=== PATIENT | female | born 1965 | race Caucasian/White ===

== ENCOUNTER 2016-11-27 12:36 | Emergency (ER) | payer OTHER ==
[2016-11-27] MEDS ORDERED: ONDANSETRON HCL IV 4 MG/2 ML VIAL IV ONE (13:04)
[2016-11-27] MEDS ORDERED: KETOROLAC 30 MG/ML VIAL IVP ONE (13:04)
[2016-11-27] MEDS ORDERED: 0.9 % SODIUM CHLORIDE 1,000 ML BAG IV ONE (13:04)
--- NOTE | 2016-11-27 13:22 | Emergency Department Record ---
History of Present Illness - General Chief Complaint: Abdominal Pain Stated Complaint: DIVERTICULITIS Time Seen by Provider: 11/27/16 12:57 Source: Patient Mode of Arrival: Ambulatory Limitations: No limitations - History of Present Illness Initial Comments: pt has had diarrhea, nausea and abd pain in llq all week. pt thinks she is dehydrated. Complaint: Abdominal pain Onset/Timin -: Days(s) Location: LLQ Radiation: None Migration to: No migration Severity: Severe Quality: Stabbing Consistency: Constant Improves With: Nothing Worsens With: Nothing Associated Symptoms: Diarrhea, Nausea - Related Data Patient : No Home Medications Medication Instructions Recorded Confirmed Last Taken Alprazolam [Xanax] 1 mg PO BID PRN 04/17/14 11/27/16 03/21/16 Atorvastatin Calcium [Lipitor] 40 mg PO DAILY 04/17/14 11/27/16 03/21/16 Celecoxib [Celebrex] 200 mg PO DAILY 04/17/14 11/27/16 03/21/16 Dicyclomine HCl [Bentyl] 20 mg PO TID 04/17/14 11/27/16 03/21/16 Omeprazole [Prilosec] 20 mg PO DAILY 03/21/16 11/27/16 03/21/16 Trazodone HCl [Desyrel] 50 mg PO QHS 03/21/16 11/27/16 03/20/16 Fluvoxamine Maleate [Fluvoxamine 100 mg PO DAILY 11/27/16 11/27/16 Unknown Maleate ER] Gabapentin [Neurontin] 300 mg PO TID 11/27/16 11/27/16 Unknown Lubiprostone [Amitiza] 8 mcg PO DAILY 11/27/16 11/27/16 Unknown Quetiapine Fumarate [Seroquel] 100 mg PO QHS 11/27/16 11/27/16 Unknown Previous Rx's Medication Instructions Recorded Hydrocodone/Acetaminophen [[place] 1 tab PO Q6H PRN #7 tab 03/21/16 5mg/325mg] Allergies Allergy/AdvReac Type Severity Reaction Status Date / Time cephalexin monohydrate Allergy ITCHING Verified 03/21/16 11:45 [From Keflex] codeine Allergy ITCHING Verified 03/21/16 11:45 latex Allergy HIVES Verified 03/21/16 11:45 morphine Allergy VOMITING Verified 03/21/16 11:45 Travel Screening - Travel/Exposure Within Last 30 Days Have you traveled within the last 30 days?: No Review of Systems Reviewed: No additional complaints except as noted below Constitutional: Reports: As per HPI. Denies: Chills, Fever, Malaise, Night sweats, Weakness, Weight change Eyes: Reports: As per HPI. Denies: Eye discharge, Eye pain, Photophobia, Vision change ENT: Reports: As per HPI. Denies: Congestion, Dental pain, Ear pain, Epistaxis , Hearing loss, Throat pain Respiratory: Reports: As per HPI. Denies: Cough, Dyspnea, Hemoptysis, Stridor, Wheezes Cardiovascular: Reports: As per HPI. Denies: Arrhythmia, Chest pain, Dyspnea on exertion, Edema, Murmurs, Orthopnea, Palpitations, Paroxysmal nocturnal dyspnea, Rheumatic Fever, Syncope Endocrine: Reports: As per HPI. Denies: Fatigue, Heat or cold intolerance, Polydipsia, Polyuria Gastrointestinal: Reports: As per HPI. Denies: Abdominal pain, Constipation, Diarrhea, Hematemesis, Hematochezia, Melena, Nausea, Vomiting Genitourinary: Reports: As per HPI. Denies: Abnormal menses, Discharge, Dyspareunia, Dysuria, Frequency, Hematuria, Incontinence, Retention, Urgency Musculoskeletal: Reports: As per HPI. Denies: Arthralgia, Back pain, Gout, Joint swelling, Myalgia, Neck pain Skin: Reports: As per HPI. Denies: Bruising, Change in color, Change in hair/ nails, Lesions, Pruritus, Rash Neurological: Reports: As per HPI. Denies: Abnormal gait, Confusion, Headache, Numbness, Paresthesias, Seizure, Tingling, Tremors, Vertigo, Weakness Psychiatric: Reports: As per HPI. Denies: Anxiety, Auditory hallucinations, Depression, Homicidal thoughts, Suicidal thoughts, Visual hallucinations Hematological/Lymphatic: Reports: As per HPI. Denies: Anemia, Blood Clots, Easy bleeding, Easy bruising, Swollen glands Past Medical History - SOCIAL HISTORY Smoking Status: Current every day smoker Alcohol Use: None Drug Use: None - RESPIRATORY Hx Respiratory Disorders: No - CARDIOVASCULAR Hx Cardio Disorders: No - NEURO Hx Neuro Disorders: No - GI Hx GI Disorders: Yes Hx Diverticulitis: Yes Hx Reflux: Yes Comment:: chronic constipation and gi issues - Hx Genitourinary Disorders: No - ENDOCRINE Hx Endocrine Disorders: No - MUSCULOSKELETAL Hx Musculoskeletal Disorders: Yes - PSYCH Hx Psych Problems: Yes Hx Depression: Yes Comment:: OCPD - HEMATOLOGY/ONCOLOGY Hx Hematology/Oncology Disorders: No Family Medical History Any Significant Family History?: Yes Family Hx Comment (NOT TO BE USED IN PLACE OF ITEMS BELOW): High cholesterol Physical Exam - General General Appearance: Alert, Oriented x3, Cooperative, Mild distress - Head Head exam: Normal inspection - Eye Eye exam: Normal appearance, PERRL, EOMI Pupils: Normal accommodation - ENT ENT exam: Normal exam, Mucous membranes moist, Normal external ear exam, Normal orophraynx Ear exam: Normal external inspection. negative: External canal tenderness Nasal Exam: Normal inspection. negative: Discharge, Sinus tenderness Mouth exam: Normal external inspection, Tongue normal Teeth exam: Normal inspection. negative: Dental caries Throat exam: Normal inspection. negative: Tonsillar erythema, Tonsillar exudate - Neck Neck exam: Normal inspection, Full ROM. negative: Tenderness - Respiratory Respiratory exam: Normal lung sounds bilaterally. negative: Respiratory distress - Cardiovascular Cardiovascular Exam: Regular rate, Normal rhythm, Normal heart sounds - GI/Abdominal GI/Abdominal exam: Soft, Normal bowel sounds, Tenderness (llq) - Rectal Rectal exam: Deferred - exam: Deferred - Extremities Extremities exam: Normal inspection, Full ROM, Normal capillary refill. negative: Tenderness - Back Back exam: Reports: Normal inspection, Full ROM. Denies: Muscle spasm, Rash noted, Tenderness - Neurological Neurological exam: Alert, CN II-XII intact, Normal gait, Oriented X3, Reflexes normal - Psychiatric Psychiatric exam: Normal affect, Normal mood - Skin Skin exam: Dry, Intact, Normal color, Warm Course Vital Signs 11/27/16 12:39 Temperature 97.7 F Pulse Rate 75 Respiratory 20 Rate Blood Pressure 112/81 Pulse Ox 99 Medical Decision Making - Lab Data Result diagrams: 11/27/16 13:20 11/27/16 13:20 Disposition Disposition: Discharge Clinical Impression: Abdominal pain Qualifiers: Abdominal location: left lower quadrant Qualified Code(s): R10.32 - Left lower quadrant pain Disposition: Home, Self-Care Instructions: Abdominal Pain (ED) Additional Instructions: follow up with family doctor. return sooner if worse. push fluids Forms: Patient Portal Access
[2016-11-27 13:32] LABS: BASO % 0.3 % (0-6); EOS % 1.2 % (0-6); GRAN % 70.1 % (47-80); HEMATOCRIT 37.8 % (35.0-47.0); HEMOGLOBIN 12.4 gm/dl (11.6-16.0); LYMPH % 20.6 % (16-45); MEAN CELL VOLUME 87.7 fl (81-97); MEAN CORPUSCULAR HEMOGLOBIN 28.8 pg (27-33); MEAN CORPUSCULAR HGB CONC 32.8 g/dl (32-36); MONO % 7.8 % (0-9); PLATELET COUNT 205 K/uL (130-400); RED BLOOD COUNT 4.31 M/uL (3.80-5.40); RED CELL DISTRIBUTION WIDTH 13.4 % (11.5-14.5); WHITE BLOOD COUNT W/O DIFF 7.3 K/uL (4.2-12.2)
[2016-11-27 13:48] LABS: ALB/GLOB RATIO 1.5 (1.1-1.8); ALBUMIN 4.3 gm/dL (3.5-5.0); ALKALINE PHOSPHATASE 98 U/L (38-126); ALT/SGPT 24 U/L (9-52); ANION GAP 5.7 (7-16); AST/SGOT 19 U/L (14-36); BILIRUBIN,TOTAL 0.39 mg/dL (0.2-1.3); BLOOD UREA NITROGEN 17 mg/dL (7-17); CARBON DIOXIDE 28.3 mmol/L (22-30); CREATININE 0.7 mg/dL (0.52-1.04); EST GLOMERULAR FILTRATION RATE > 60 ml/min; GLUCOSE,RANDOM 90 mg/dL (70-110); LIPASE 84 U/L (23-300); TOTAL PROTEIN 7.2 gm/dL (6.3-8.2)
[2016-11-27 15:37] LABS: URINE APPEARANCE CLEAR; URINE BILIRUBIN NEGATIVE (NEGATIVE); URINE BLOOD NEGATIVE (NEGATIVE); URINE COLOR YELLOW; URINE GLUCOSE (UA) NEGATIVE (NEGATIVE); URINE KETONE NEGATIVE (NEGATIVE); URINE LEUKOCYTE ESTERASE NEGATIVE (NEGATIVE); URINE NITRITE NEGATIVE (NEGATIVE); URINE PROTEIN NEGATIVE (NEGATIVE); URINE UROBILINOGEN 0.2 E.U./dL (0.20 - 1.00)
--- NOTE | 2016-11-30 04:33 | CT SCAN REPORT ---
DATE: 11/27/2016. EXAM: CT SCAN OF THE ABDOMEN AND PELVIS. HISTORY: Diarrhea. TECHNIQUE: CT of the abdomen and pelvis was performed following the IV administration of 100 mL of Omnipaque 300 contrast. Oral contrast was also utilized. COMPARISON: Prior CT scan dated 03/21/2016. FINDINGS: Limited evaluation of the lung bases shows small bibasilar effusions. The liver, spleen, adrenal glands, pancreas, and left kidney are unremarkable. Simple right renal cyst. The gallbladder is present. Normal appendix. Abundant stool in the colon. No evidence for bowel obstruction. No free air or free fluid. IMPRESSION: SMALL BILATERAL PLEURAL EFFUSIONS. ABUNDANT STOOL IN THE COLON. JOB NUMBER: [id number] MTDD
== END 2016-11-27 16:06 | disposition home or self-care (01) ==
LOC: ER 12:36
DX: R10.32 Left lower quadrant pain (principal); R19.7 Diarrhea, unspecified; R11.0 Nausea
CPT/HCPCS: 99284 ×2; 96374; 96375; 96361; 83690; 85025; 80053; 81003; 74177; Q9967; J1885; J2405; J7030

== ENCOUNTER 2017-04-17 14:21 | Emergency (ER) | payer OTHER ==
[2017-04-17] MEDS ORDERED: ONDANSETRON HCL IV 4 MG/2 ML VIAL IV ONE (14:56)
[2017-04-17] MEDS ORDERED: KETOROLAC 30 MG/ML VIAL IVP ONE (14:56)
[2017-04-17] MEDS ORDERED: 0.9 % SODIUM CHLORIDE 1,000 ML BAG IV ONE (14:56)
[2017-04-17 15:43] LABS: BASO % 0.4 % (0-6); GRAN % 70.6 % (47-80); HEMATOCRIT 39.6 % (35.0-47.0); HEMOGLOBIN 13.3 gm/dl (11.6-16.0); LYMPH % 19.7 % (16-45); MEAN CORPUSCULAR HEMOGLOBIN 29.2 pg (27-33); MEAN CORPUSCULAR HGB CONC 33.6 g/dl (32-36); MEAN PLATELET VOLUME 10.6 fl (7.4-10.4); MONO % 8.3 % (0-9); PLATELET COUNT 188 K/uL (130-400); RED BLOOD COUNT 4.55 M/uL (3.80-5.40); RED CELL DISTRIBUTION WIDTH 13.4 % (11.5-14.5); WHITE BLOOD COUNT W/O DIFF 6.9 K/uL (4.2-12.2)
[2017-04-17 16:01] LABS: ALB/GLOB RATIO 1.7 (1.1-1.8); ALBUMIN 4.4 g/dL (4.0-5.0); ALKALINE PHOSPHATASE 97 U/L (35-104); ALT/SGPT 14 U/L (<33); AST/SGOT 14 U/L (10.0-35.0); BLOOD UREA NITROGEN 11 mg/dL (6-20); CREATININE 0.7 mg/dL (0.5-0.9); EST GLOMERULAR FILTRATION RATE > 60 mL/min; GLUCOSE,RANDOM 108 mg/dL (74-109); LIPASE 25 U/L (13-60)
[2017-04-17 16:58] LABS: URINE APPEARANCE CLEAR; URINE BILIRUBIN NEGATIVE (NEGATIVE); URINE BLOOD NEGATIVE (NEGATIVE); URINE COLOR YELLOW; URINE GLUCOSE (UA) NEGATIVE (NEGATIVE); URINE KETONE NEGATIVE (NEGATIVE); URINE LEUKOCYTE ESTERASE NEGATIVE (NEGATIVE); URINE NITRITE NEGATIVE (NEGATIVE); URINE PROTEIN NEGATIVE (NEGATIVE); URINE UROBILINOGEN 0.2 E.U./dL (0.20 - 1.00)
--- NOTE | 2017-04-17 18:02 | Emergency Department Record ---
History of Present Illness - General Chief Complaint: Abdominal Pain Stated Complaint: ABDOMINAL PAIN Time Seen by Provider: 04/17/17 14:46 Source: Patient Mode of Arrival: Ambulatory Limitations: No limitations - History of Present Illness Initial Comments: pt is having llq pain for 4 days that is keeping her awake at night. she has no n/v/d. she has chronic constipation. she takes norco and is not taking any stool softener. MD Complaint: Abdominal pain Onset/Timin -: Week(s) Location: Diffuse, Suprapubic Severity: Moderate Quality: Burning, Cramping Consistency: Constant Improves With: Nothing Worsens With: Nothing Associated Symptoms: Constipation - Related Data Patient : No Previous Rx's Medication Instructions Recorded Hydrocodone/Acetaminophen [[place] 1 tab PO Q6H PRN #7 tab 03/21/16 5mg/325mg] Allergies Allergy/AdvReac Type Severity Reaction Status Date / Time cephalexin monohydrate Allergy ITCHING Verified 04/17/17 14:28 [From Keflex] codeine Allergy ITCHING Verified 04/17/17 14:28 latex Allergy HIVES Verified 04/17/17 14:28 morphine Allergy VOMITING Verified 04/17/17 14:28 Travel Screening - Travel/Exposure Within Last 30 Days Have you traveled within the last 30 days?: No - Travel/Exposure Within Last Year Have you traveled outside the [place] in the last year?: No - Additonal Travel Details Have you been exposed to anyone with a communicable illness?: No - Travel Symptoms Symptom Screening: None Review of Systems Reviewed: No additional complaints except as noted below Constitutional: Reports: As per HPI. Denies: Chills, Fever, Malaise, Night sweats, Weakness, Weight change Eyes: Reports: As per HPI. Denies: Eye discharge, Eye pain, Photophobia, Vision change ENT: Reports: As per HPI. Denies: Congestion, Dental pain, Ear pain, Epistaxis , Hearing loss, Throat pain Respiratory: Reports: As per HPI. Denies: Cough, Dyspnea, Hemoptysis, Stridor, Wheezes Cardiovascular: Reports: As per HPI. Denies: Arrhythmia, Chest pain, Dyspnea on exertion, Edema, Murmurs, Orthopnea, Palpitations, Paroxysmal nocturnal dyspnea, Rheumatic Fever, Syncope Endocrine: Reports: As per HPI. Denies: Fatigue, Heat or cold intolerance, Polydipsia, Polyuria Gastrointestinal: Reports: As per HPI. Denies: Abdominal pain, Constipation, Diarrhea, Hematemesis, Hematochezia, Melena, Nausea, Vomiting Genitourinary: Reports: As per HPI. Denies: Abnormal menses, Discharge, Dyspareunia, Dysuria, Frequency, Hematuria, Incontinence, Retention, Urgency Musculoskeletal: Reports: As per HPI. Denies: Arthralgia, Back pain, Gout, Joint swelling, Myalgia, Neck pain Skin: Reports: As per HPI. Denies: Bruising, Change in color, Change in hair/ nails, Lesions, Pruritus, Rash Neurological: Reports: As per HPI. Denies: Abnormal gait, Confusion, Headache, Numbness, Paresthesias, Seizure, Tingling, Tremors, Vertigo, Weakness Psychiatric: Reports: As per HPI. Denies: Anxiety, Auditory hallucinations, Depression, Homicidal thoughts, Suicidal thoughts, Visual hallucinations Hematological/Lymphatic: Reports: As per HPI. Denies: Anemia, Blood Clots, Easy bleeding, Easy bruising, Swollen glands Past Medical History - SOCIAL HISTORY Smoking Status: Current every day smoker Alcohol Use: None Drug Use: None - RESPIRATORY Hx Respiratory Disorders: No - CARDIOVASCULAR Hx Cardio Disorders: No - NEURO Hx Neuro Disorders: No - GI Hx GI Disorders: Yes Hx Diverticulitis: Yes Hx Reflux: Yes Comment:: chronic constipation and gi issues - Hx Genitourinary Disorders: No - ENDOCRINE Hx Endocrine Disorders: No - MUSCULOSKELETAL Hx Musculoskeletal Disorders: Yes - PSYCH Hx Psych Problems: Yes Hx Depression: Yes Comment:: OCPD - HEMATOLOGY/ONCOLOGY Hx Hematology/Oncology Disorders: No Family Medical History Any Significant Family History?: Yes Family Hx Comment (NOT TO BE USED IN PLACE OF ITEMS BELOW): High cholesterol Physical Exam - General General Appearance: Alert, Oriented x3, Cooperative, Mild distress - Head Head exam: Normal inspection - Eye Eye exam: Normal appearance, PERRL, EOMI Pupils: Normal accommodation - ENT ENT exam: Normal exam, Mucous membranes moist, Normal external ear exam, Normal orophraynx Ear exam: Normal external inspection. negative: External canal tenderness Nasal Exam: Normal inspection. negative: Discharge, Sinus tenderness Mouth exam: Normal external inspection, Tongue normal Teeth exam: Normal inspection. negative: Dental caries Throat exam: Normal inspection. negative: Tonsillar erythema, Tonsillar exudate - Neck Neck exam: Normal inspection, Full ROM. negative: Tenderness - Respiratory Respiratory exam: Normal lung sounds bilaterally. negative: Respiratory distress - Cardiovascular Cardiovascular Exam: Regular rate, Normal rhythm, Normal heart sounds - GI/Abdominal GI/Abdominal exam: Soft, Normal bowel sounds, Tenderness - Rectal Rectal exam: Deferred - exam: Deferred - Extremities Extremities exam: Normal inspection, Full ROM, Normal capillary refill. negative: Tenderness - Back Back exam: Reports: Normal inspection, Full ROM. Denies: Muscle spasm, Rash noted, Tenderness - Neurological Neurological exam: Alert, CN II-XII intact, Normal gait, Oriented X3 - Psychiatric Psychiatric exam: Normal affect, Normal mood - Skin Skin exam: Dry, Intact, Normal color, Warm Course Vital Signs 04/17/17 04/17/17 14:32 17:31 Temperature 97.4 F L 97.4 F L Pulse Rate 75 Pulse Rate [ 62 Pulse Ox Probe] Respiratory 20 20 Rate Blood Pressure 117/87 Blood Pressure 124/78 [Left Arm] Pulse Ox 97 99 Medical Decision Making - Lab Data Result diagrams: 04/17/17 15:10 04/17/17 15:10 Lab Results 04/17/17 04/17/17 04/17/17 Range/Units 15:10 15:10 16:55 WBC 6.9 (4.2-12.2) K/uL RBC 4.55 (3.80-5.40) M/uL Hgb 13.3 (11.6-16.0) gm/dl Hct 39.6 (35.0-47.0) % MCV 87.0 (81-97) fl MCH 29.2 (27-33) pg MCHC 33.6 (32-36) g/dl RDW 13.4 (11.5-14.5) % Plt Count 188 (130-400) K/uL MPV 10.6 H (7.4-10.4) fl Gran % 70.6 (47-80) % Lymphocytes % 19.7 (16-45) % Monocytes % 8.3 (0-9) % Eosinophils % 1.0 (0-6) % Basophils % 0.4 (0-6) % Sodium 140 (136-145) mmol/L Potassium 3.8 (3.4-4.5) mmol/L Chloride 100 (98-107) mmol/L Carbon Dioxide 30.0 H (22-29) mmol/L Anion Gap 10.0 (7-16) BUN 11 (6-20) mg/dL Creatinine 0.7 (0.5-0.9) mg/dL Estimated GFR > 60 mL/min Random Glucose 108 (74-109) mg/dL Calcium 9.9 (8.6-10.0) mg/dL Total Bilirubin 0.20 (0.2-1.0) mg/dL AST 14 (10.0-35.0) U/L ALT 14 (<33) U/L Alkaline Phosphatase 97 (35-104) U/L Total Protein 7.0 (6.6-8.7) g/dL Albumin 4.4 (4.0-5.0) g/dL Globulin 2.6 (1.4-4.8) gm/dL Albumin/Globulin Ratio 1.7 (1.1-1.8) Lipase 25 (13-60) U/L Urine Color Yellow Urine Appearance Clear Urine pH 7.0 (5.0-8.0) Ur Specific [place] 1.010 (1.002-1.030) Urine Protein Negative (NEGATIVE) Urine Glucose (UA) Negative (NEGATIVE) Urine Ketones Negative (NEGATIVE) Urine Blood Negative (NEGATIVE) Urine Nitrite Negative (NEGATIVE) Urine Bilirubin Negative (NEGATIVE) Urine Urobilinogen 0.2 (0.20 - 1.00) E.U./dL Ur Leukocyte Esterase Negative (NEGATIVE) Disposition Disposition: Discharge Clinical Impression: Abdominal pain Qualifiers: Abdominal location: left lower quadrant Qualified Code(s): R10.32 - Left lower quadrant pain Constipation Qualifiers: Constipation type: slow transit constipation Qualified Code(s): K59.01 - Slow transit constipation Disposition: Home, Self-Care Condition: (1) Good Instructions: Abdominal Pain (ED), Constipation (ED) Additional Instructions: follow up with family doctor. return sooner if worse Quality - Quality Measures Quality Measures: N/A - Blood Pressure Screening Does Patient Have Any of the Following: No Blood Pressure Classification: Pre-Hypertensive BP Reading Systolic Measurement: 117 Diastolic Measurement: 87 Screening for High Blood Pressure: < Pre-Hypertensive BP, F/U Documented > [ G8950] Pre-Hypertensive Follow-up Interventions: Follow-up with rescreen every year.
--- NOTE | 2017-04-19 10:57 | CT SCAN REPORT ---
EXAM: CT SCAN OF THE ABDOMEN AND PELVIS HISTORY: ABDOMINAL PAIN. CONSTIPATION. TECHNIQUE: Standard CT imaging of the abdomen and pelvis was performed with oral and intravenous contrast. 100 ml of Omnipaque 300 were administered. Comparison: 11/27/16. FINDINGS: There are tiny bilateral pleural effusions which appear similar to the previous examination. There is minor atelectasis at the left lung base. The liver, gallbladder, biliary tree, pancreas, spleen, and adrenal glands are normal. There is a stable tiny cyst within the right kidney anteriorly. The kidneys and ureters are otherwise normal. The aorta is normal in caliber. There is no lymphadenopathy. A large amount of stool is present throughout the colon. There are no focal inflammatory changes. A few scattered diverticula are present within the sigmoid colon with no evidence for acute diverticulitis. The small bowel loops are normal in caliber. The appendix is visualized and is unremarkable. There is no pneumoperitoneum or ascites. The urinary bladder is normal. The bones appear intact. Degenerative changes are present within the spine. IMPRESSION: 1. NO ACUTE INTRAABDOMINAL PATHOLOGY. 2. A LARGE AMOUNT OF STOOL IS PRESENT WITHIN THE COLON. 3. MINOR SIGMOID DIVERTICULOSIS WITH NO EVIDENCE FOR ACUTE DIVERTICULITIS. 4. STABLE RIGHT RENAL CYST. 5. STABLE TINY BILATERAL PLEURAL EFFUSIONS. JOB NUMBER: [id number] [facility]
== END 2017-04-17 18:22 | disposition home or self-care (01) ==
LOC: ER 14:21
DX: R10.32 Left lower quadrant pain (principal); K59.01 Slow transit constipation
CPT/HCPCS: 99284 ×2; 96374; 96375; 83690; 85025; 80053; 81003; 74177; Q9967; J1885; J2405; J7030

== ENCOUNTER 2017-11-17 05:49 | Emergency (ER) | payer SELFPAY ==
--- NOTE | 2017-11-17 06:06 | Emergency Department Record ---
History of Present Illness - General Chief Complaint: Chest Pain Stated Complaint: CHEST PAIN Time Seen by Provider: 11/17/17 06:03 Source: Patient Mode of Arrival: Ambulatory Limitations: No limitations - History of Present Illness Initial Comments: 52 yo female presents to ED for evaluation of epigastric pain that radiates to her chest that began upon awakening this morning 90 minutes ago. Patient reports a history of "bowel issues" and surgery for adhesions 6 year ago, thought her symptoms were related to GERD and took Nexium this morning without improvement. Patient denies lower extremity swelling or history of DVT. MD Complaint: Chest pain Onset/Timin -: Hour(s) Onset: Awoke with symptoms Pain Location: Substernal, Left chest Pain Radiation: Back Severity: Moderate Severity scale (1-10): 9 Quality: Heaviness Consistency: Constant Improves With: Nothing Worsens With: Eating Anginal Symptoms: Diaphoresis, Nausea Treatments Prior to Arrival: None - Related Data On Oral Contraceptives: No Home Medications Medication Instructions Recorded Confirmed Last Taken Alprazolam 1 mg PO BID PRN 11/17/17 11/17/17 Unknown Esomeprazole Magnesium [Nexium] 20 mg PO DAILY 11/17/17 11/17/17 Unknown Allergies Allergy/AdvReac Type Severity Reaction Status Date / Time cephalexin monohydrate Allergy ITCHING Verified 04/17/17 14:28 [From Keflex] codeine Allergy ITCHING Verified 04/17/17 14:28 latex Allergy HIVES Verified 04/17/17 14:28 morphine Allergy VOMITING Verified 04/17/17 14:28 Travel Screening - Travel/Exposure Within Last 30 Days Have you traveled within the last 30 days?: No Review of Systems Constitutional: Denies: Chills, Fever, Malaise, Night sweats Eyes: Denies: Eye discharge, Eye pain ENT: Denies: Congestion, Ear pain, Epistaxis Respiratory: Denies: Cough, Dyspnea Cardiovascular: Reports: Chest pain. Denies: Dyspnea on exertion Endocrine: Denies: Fatigue, Heat or cold intolerance Gastrointestinal: Reports: Abdominal pain. Denies: Nausea, Vomiting Genitourinary: Denies: Incontinence, Retention Musculoskeletal: Denies: Arthralgia, Back pain, Gout, Joint swelling Skin: Denies: Bruising, Change in color Neurological: Denies: Abnormal gait, Confusion, Headache, Seizure Psychiatric: Denies: Anxiety Hematological/Lymphatic: Denies: Anemia, Blood Clots Past Medical History - SOCIAL HISTORY Smoking Status: Current every day smoker Alcohol Use: None Drug Use: None - RESPIRATORY Hx Respiratory Disorders: No - CARDIOVASCULAR Hx Cardio Disorders: No - NEURO Hx Neuro Disorders: No - GI Hx GI Disorders: Yes Hx Diverticulitis: Yes Hx Reflux: Yes Comment:: chronic constipation and gi issues - Hx Genitourinary Disorders: No - ENDOCRINE Hx Endocrine Disorders: No - MUSCULOSKELETAL Hx Musculoskeletal Disorders: Yes - PSYCH Hx Psych Problems: Yes Hx Depression: Yes Comment:: OCPD - HEMATOLOGY/ONCOLOGY Hx Hematology/Oncology Disorders: No Family Medical History Any Significant Family History?: Yes Family Hx Comment (NOT TO BE USED IN PLACE OF ITEMS BELOW): High cholesterol Physical Exam - General General Appearance: Alert, Oriented x3, Cooperative, Mild distress, Anxious Limitations: No limitations - Head Head exam: Atraumatic, Normocephalic, Normal inspection Head exam detail: negative: Abrasion, Contusion, Esteban's sign, General tenderness, Hematoma, Laceration - Eye Eye exam: Normal appearance. negative: Conjunctival injection, Periorbital swelling, Periorbital tenderness, Scleral icterus - ENT Ear exam: negative: Auricular hematoma, Auricular trauma Nasal Exam: negative: Active bleeding, Discharge, Dried blood, Foreign body Mouth exam: negative: Drooling, Laceration, Muffled voice, Tongue elevation - Neck Neck exam: Normal inspection. negative: Meningismus, Tenderness - Respiratory Respiratory exam: Normal lung sounds bilaterally. negative: Rales, Respiratory distress, Rhonchi, Stridor - Cardiovascular Cardiovascular Exam: Regular rate, Normal rhythm, Normal heart sounds - GI/Abdominal GI/Abdominal exam: Soft, Other (Benign abdominal examination). negative: Rebound, Rigid, Tenderness - Rectal Rectal exam: Deferred - exam: Deferred - Extremities Extremities exam: Normal inspection. negative: Calf tenderness, Pedal edema, Tenderness - Back Back exam: Denies: CVA tenderness (R), CVA tenderness (L) - Neurological Neurological exam: Alert, Normal gait, Oriented X3 - Psychiatric Psychiatric exam: Normal affect, Normal mood - Skin Skin exam: Normal color. negative: Abrasion Type of lesion: negative: abrasion Course Vital Signs 11/17/17 05:50 Temperature 97.6 F Pulse Rate 48 L Respiratory 22 Rate Blood Pressure 152/89 Pulse Ox 100 - Reevaluation(s) Reevaluation #1: 11/17/17 06:04 EKG: NSR 48 LAD, normal intervals No acute ST-T wave changes are present Reevaluation #2: 11/17/17 06:41 Laboratory results were reviewed and are grossly unremarkable for an acute process. Reevaluation #3: 11/17/17 06:43 CXR: No acute process identified. Reevaluation #4: 11/17/17 06:49 Patient reassessed, reports pain radiating up to her chest is improved following GI cocktail. Toradol ordered for patient's abdominal pain symptoms which patient reports has improved her symptoms previously. Plan for 2nd Troponin at 3 hours was discussed with the patient as well, she agrees with the plan of care as discussed. Reevaluation #5: 11/17/17 06:52 Case was discussed with oncoming provider, will assume care and disposition at this time with a plan for re-evaluation following Toradol administration and repeat Troponin at 9:00. Re-examination of the abdomen continues to be benign without focal tenderness or peritoneal signs on examination. Medical Decision Making - Lab Data Result diagrams: 11/17/17 05:55 11/17/17 05:55 Disposition Disposition: Discharge Clinical Impression: Chest pain Qualifiers: Chest pain type: unspecified Qualified Code(s): R07.9 - Chest pain, unspecified Condition: (2) Stable Additional Instructions: Return to ED if your symptoms worsen or if you have any concerns. Follow-up with your family doctor in 3-5 days as directed. Forms: Patient Portal Access Quality - Quality Measures Quality Measures: N/A - Blood Pressure Screening Does Patient Have Any of the Following: No Blood Pressure Classification: Pre-Hypertensive BP Reading Systolic Measurement: 152 Diastolic Measurement: 89 Screening for High Blood Pressure: < Pre-Hypertensive BP, F/U Documented > [ G8950] Pre-Hypertensive Follow-up Interventions: Referral to alternative/primary care provider.
[2017-11-17] MEDS ORDERED: ASPIRIN 81 MG CHEWABLE TABLET PO ONE (06:11)
[2017-11-17] MEDS ORDERED: MAGNESIUM HYDROXIDE/AL HYDROX 30 ML, LIDOCAINE VISC 2% 15ML 15 ML PO ONE ×2 (06:11)
[2017-11-17 06:18] LABS: BASO % 0.2 % (0-6); EOS % 2.4 % (0-6); GRAN % 65.7 % (47-80); HEMATOCRIT 40.8 % (35.0-47.0); HEMOGLOBIN 13.8 gm/dl (11.6-16.0); LYMPH % 22.4 % (16-45); MEAN CELL VOLUME 86.3 fl (81-97); MEAN CORPUSCULAR HEMOGLOBIN 29.2 pg (27-33); MEAN CORPUSCULAR HGB CONC 33.8 g/dl (32-36); MEAN PLATELET VOLUME 10.4 fl (7.4-10.4); MONO % 9.3 % (0-9); PLATELET COUNT 211 K/uL (130-400); RED BLOOD COUNT 4.73 M/uL (3.80-5.40); WHITE BLOOD COUNT W/O DIFF 8.4 K/uL (4.2-12.2)
[2017-11-17 06:30] LABS: BLOOD UREA NITROGEN 15 mg/dL (6-20); CREATININE 0.6 mg/dL (0.5-0.9); EST GLOMERULAR FILTRATION RATE > 60 mL/min
[2017-11-17 06:31] LABS: TOTAL PROTEIN 6.8 g/dL (6.6-8.7)
[2017-11-17 06:33] LABS: GLUCOSE,RANDOM 108 mg/dL (74-109)
[2017-11-17 06:35] LABS: ALB/GLOB RATIO 1.6 (1.1-1.8); ALBUMIN 4.2 g/dL (4.0-5.0); ALT/SGPT 15 U/L (<33); AST/SGOT 18 U/L (10.0-35.0)
[2017-11-17 06:36] LABS: LIPASE 33 U/L (13-60)
[2017-11-17 06:37] LABS: ALKALINE PHOSPHATASE 94 U/L (35-104)
[2017-11-17] MEDS ORDERED: KETOROLAC 30 MG/ML VIAL IVP ONE (06:49)
[2017-11-17] MEDS ORDERED: SUCRALFATE 1 G/10 ML UD PO ONE (07:42)
--- NOTE | 2017-11-17 08:02 | Emergency Department Record ---
History of Present Illness - General Chief Complaint: Chest Pain Stated Complaint: CHEST PAIN Time Seen by Provider: 11/17/17 06:03 Source: Patient Mode of Arrival: Ambulatory Limitations: No limitations - History of Present Illness Onset/Timin -: Hour(s) Onset: Awoke with symptoms Pain Location: Substernal, Left chest Pain Radiation: Back Severity: Moderate Severity scale (1-10): 9 Quality: Heaviness Consistency: Constant Improves With: Nothing Worsens With: Eating Anginal Symptoms: Diaphoresis, Nausea Treatments Prior to Arrival: None - Related Data On Oral Contraceptives: No Home Medications Medication Instructions Recorded Confirmed Last Taken Alprazolam 1 mg PO BID PRN 11/17/17 11/17/17 Unknown Esomeprazole Magnesium [Nexium] 20 mg PO DAILY 11/17/17 11/17/17 Unknown Allergies Allergy/AdvReac Type Severity Reaction Status Date / Time cephalexin monohydrate Allergy ITCHING Verified 04/17/17 14:28 [From Keflex] codeine Allergy ITCHING Verified 04/17/17 14:28 latex Allergy HIVES Verified 04/17/17 14:28 morphine Allergy VOMITING Verified 04/17/17 14:28 Travel Screening - Travel/Exposure Within Last 30 Days Have you traveled within the last 30 days?: No Review of Systems Constitutional: Denies: Chills, Fever, Malaise, Night sweats Eyes: Denies: Eye discharge, Eye pain ENT: Denies: Congestion, Ear pain, Epistaxis Respiratory: Denies: Cough, Dyspnea Cardiovascular: Reports: Chest pain. Denies: Dyspnea on exertion Endocrine: Denies: Fatigue, Heat or cold intolerance Gastrointestinal: Reports: Abdominal pain. Denies: Nausea, Vomiting Genitourinary: Denies: Incontinence, Retention Musculoskeletal: Denies: Arthralgia, Back pain, Gout, Joint swelling Skin: Denies: Bruising, Change in color Neurological: Denies: Abnormal gait, Confusion, Headache, Seizure Psychiatric: Denies: Anxiety Hematological/Lymphatic: Denies: Anemia, Blood Clots Past Medical History - SOCIAL HISTORY Smoking Status: Current every day smoker Alcohol Use: None Drug Use: None - RESPIRATORY Hx Respiratory Disorders: No - CARDIOVASCULAR Hx Cardio Disorders: No - NEURO Hx Neuro Disorders: No - GI Hx GI Disorders: Yes Hx Diverticulitis: Yes Hx Reflux: Yes Comment:: chronic constipation and gi issues - Hx Genitourinary Disorders: No - ENDOCRINE Hx Endocrine Disorders: No - MUSCULOSKELETAL Hx Musculoskeletal Disorders: Yes - PSYCH Hx Psych Problems: Yes Hx Depression: Yes Comment:: OCPD - HEMATOLOGY/ONCOLOGY Hx Hematology/Oncology Disorders: No Family Medical History Any Significant Family History?: Yes Family Hx Comment (NOT TO BE USED IN PLACE OF ITEMS BELOW): High cholesterol Physical Exam - General Limitations: No limitations Course Vital Signs 11/17/17 11/17/17 11/17/17 05:50 06:13 06:37 Temperature 97.6 F Pulse Rate 48 L Pulse Rate [ 45 L 46 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 She states her AP and CP are 100% resolved with the GI meds and Toradol. Presently there is no back pain, CP, SOB , EARLINE, or AP. The patient states this episode is similar to her chronic AP episodes but this is the first time the pain radiated to the chest. She has no hx of any cardiac issues and no hx of Cp with exertion. On exam her abdomen is very soft and nontender in all 4 quads. 2nd EKG: NSR at 51, Neg for ischemic changes. RsR' pattern. 11/17/17 07:57 Reevaluation #2: The patient is doing very well at this time. She is pain free and ready for home. I did explain the repeat test results were normal. She is to F/U with GI here in the Specialty clinic for further eval and a possible EGD. 11/17/17 09:51 Medical Decision Making - Data Complexity MDM Data: Labs Ordered and/or Reviewed, X-Ray Ordered and/or Reviewed, EKG Ordered and/or Reviewed - Lab Data Result diagrams: 11/17/17 05:55 11/17/17 05:55 Lab Results 11/17/17 11/17/17 Range/Units 05:55 05:55 WBC 8.4 (4.2-12.2) K/uL RBC 4.73 (3.80-5.40) M/uL Hgb 13.8 (11.6-16.0) gm/dl Hct 40.8 (35.0-47.0) % MCV 86.3 (81-97) fl MCH 29.2 (27-33) pg MCHC 33.8 (32-36) g/dl RDW 13.0 (11.5-14.5) % Plt Count 211 (130-400) K/uL MPV 10.4 (7.4-10.4) fl Gran % 65.7 (47-80) % Lymphocytes % 22.4 (16-45) % Monocytes % 9.3 H (0-9) % Eosinophils % 2.4 (0-6) % Basophils % 0.2 (0-6) % Sodium 146 H (136-145) mmol/L Potassium 4.1 (3.4-4.5) mmol/L Chloride 104 (98-107) mmol/L Carbon Dioxide 25.0 (22-29) mmol/L Anion Gap 17.0 H (7-16) BUN 15 (6-20) mg/dL Creatinine 0.6 (0.5-0.9) mg/dL Estimated GFR > 60 mL/min Random Glucose 108 (74-109) mg/dL Calcium 9.8 (8.6-10.0) mg/dL Total Bilirubin 0.20 (0.2-1.0) mg/dL AST 18 (10.0-35.0) U/L ALT 15 (<33) U/L Alkaline Phosphatase 94 (35-104) U/L Troponin T < 0.010 (0-0.010) ng/mL Total Protein 6.8 (6.6-8.7) g/dL Albumin 4.2 (4.0-5.0) g/dL Globulin 2.6 (1.4-4.8) gm/dL Albumin/Globulin Ratio 1.6 (1.1-1.8) Lipase 33 (13-60) U/L - Radiology Data Radiology results: Report reviewed (CXR: Neg.) Disposition Disposition: Discharge Clinical Impression: Acute epigastric pain Disposition: Home, Self-Care Condition: (2) Stable Instructions: Abdominal Pain (ED) Additional Instructions: Return to ED if your symptoms worsen or if you have any concerns. Follow-up with your family doctor in 3-5 days as directed. Please see Dr. Berman in the Specialty clinic as directed. Referrals: [facility] Specialty [facility] [Provider Group] Forms: Patient Portal Access Time of Disposition: 09:53 Quality - Quality Measures Quality Measures: N/A - Blood Pressure Screening View Details: Yes Does Patient Have Any of the Following: No Blood Pressure Classification: Hypertensive Reading Systolic Measurement: 157 Diastolic Measurement: 79 Screening for High Blood Pressure: < First Hypertensive BP, F/U Documented > [ G8950] First Hypertensive Follow-up Interventions: Referral to alternative/primary care provider.
[2017-11-17 09:35] LABS: CKMB 1.5 ng/mL (<3.77)
--- NOTE | 2017-11-18 12:59 | RADIOLOGY REPORT ---
EXAM: CHEST, TWO VIEWS HISTORY: CHEST PAIN. TECHNIQUE: Frontal and lateral views of the chest were obtained. Comparison: Prior chest from 06/25/11. FINDINGS: The heart size is normal. The lungs are mildly hyperinflated, but clear. No pneumothorax. IMPRESSION: UNDERLYING HYPERINFLATION. NO ACUTE CARDIOPULMONARY PROCESS. JOB NUMBER: [id number] MTDD
== END 2017-11-17 10:13 | disposition home or self-care (01) ==
LOC: ER 05:49
DX: R10.13 Epigastric pain (principal); R07.2 Precordial pain; R11.0 Nausea; R61 Generalized hyperhidrosis; F17.210 Nicotine dependence, cigarettes, uncomplicated
CPT/HCPCS: 99284 ×2; 96374; 83690; 85025; 82553; 80053; 84484; 71046; 93005; 93010; J1885; J3490

== ENCOUNTER 2017-11-22 00:50 | Day surgery (SDC) | payer SELFPAY ==
[2017-11-22] MEDS ORDERED: LIDOCAINE 2% MDV (20MG/ML) 20ML VIAL IV ONE (00:51)
[2017-11-22] MEDS ORDERED: ROCURONIUM BROMIDE 50MG/5ML VIAL IV ONE (00:51)
[2017-11-22] MEDS ORDERED: 0.9 % SODIUM CHLORIDE 1,000 ML BAG IV ONE (00:51)
[2017-11-22] MEDS ORDERED: DESFLURANE 240 ML BTL INH ONE (00:51)
[2017-11-22] MEDS ORDERED: SUCCINYLCHOLINE 20 MG/ML 10ML IVP ONE (00:51)
[2017-11-22] MEDS ORDERED: BUPIVACAINE 0.25% W/EPI MPF 30ML VIAL IVP ONE (00:51)
[2017-11-22] MEDS ORDERED: ONDANSETRON HCL IV 4 MG/2 ML VIAL IVP ONE ×2 (00:51)
[2017-11-22] MEDS ORDERED: HYDROMORPHONE HCL 2 MG/ML VIAL IV ONE (00:51)
[2017-11-22] MEDS ORDERED: PROPOFOL 10 MG/ML VIAL IV ONE (00:51)
--- NOTE | 2017-11-22 00:59 | Emergency Department Record ---
History of Present Illness - General Chief Complaint: Abdominal Pain Stated Complaint: CHEST/ABD/BACK PAIN Time Seen by Provider: 11/22/17 00:51 Source: Patient Mode of Arrival: Ambulatory Limitations: No limitations - History of Present Illness Initial Comments: 52 yo female presents with 4 hours of upper abdominal pain. The pain radiates to her back and her chest. She states is has occurred prior. Food seems to cause the pain. She has associated nausea and vomiting. She was seen in the ED on 11/17/17. She states the pain never completely resolved from the prior visit but was very mild when she went home. She states eating food the last several days will bring on the pain. She has had essentially no appetite since the prior visit. Even toast will cause her pain and nausea. This evening she had a salad with ranch dressing. Within one hour she developed pain and nausea with vomiting. No blood in the vomit. No cough. She has history of abdominal adhesions with surgery by Dr Anna 5 years ago. She states she has had recurrent abdominal pain in the past. MD Complaint: Abdominal pain, Other -: Hour(s) (4) Location: Epigastric Radiation: Back, Chest, Epigastric Migration to: Epigastric Severity: Moderate Quality: Aching, Sharp Consistency: Constant Improves With: Nothing Worsens With: Eating Context: Other Associated Symptoms: Anorexia - Related Data Allergies Allergy/AdvReac Type Severity Reaction Status Date / Time cephalexin monohydrate Allergy ITCHING Verified 04/17/17 14:28 [From Keflex] codeine Allergy ITCHING Verified 04/17/17 14:28 latex Allergy HIVES Verified 04/17/17 14:28 morphine Allergy VOMITING Verified 04/17/17 14:28 Review of Systems Constitutional: Denies: Chills, Fever, Malaise, Weakness Eyes: Denies: Eye discharge, Eye pain, Photophobia, Vision change ENT: Denies: Congestion, Throat pain Respiratory: Denies: Cough, Dyspnea, Hemoptysis, Stridor, Wheezes Cardiovascular: Reports: Chest pain. Denies: Dyspnea on exertion, Edema, Palpitations, Syncope Endocrine: Denies: Fatigue, Polydipsia, Polyuria Gastrointestinal: Reports: Abdominal pain, Diarrhea, Nausea, Vomiting. Denies: Constipation Genitourinary: Denies: Dysuria, Urgency Musculoskeletal: Reports: Back pain. Denies: Arthralgia Skin: Denies: Bruising, Change in color, Rash Neurological: Denies: Numbness, Weakness Psychiatric: Denies: Anxiety Hematological/Lymphatic: Denies: Easy bleeding, Easy bruising, Swollen glands Past Medical History - SOCIAL HISTORY Smoking Status: Current every day smoker Drug Use: None - RESPIRATORY Hx Respiratory Disorders: No - CARDIOVASCULAR Hx Cardio Disorders: No - NEURO Hx Neuro Disorders: No - GI Hx GI Disorders: Yes Hx Diverticulitis: Yes Hx Reflux: Yes Comment:: chronic constipation and gi issues - Hx Genitourinary Disorders: No - ENDOCRINE Hx Endocrine Disorders: No - MUSCULOSKELETAL Hx Musculoskeletal Disorders: Yes - PSYCH Hx Psych Problems: Yes Hx Depression: Yes Comment:: OCPD - HEMATOLOGY/ONCOLOGY Hx Hematology/Oncology Disorders: No Family Medical History Family Hx Comment (NOT TO BE USED IN PLACE OF ITEMS BELOW): High cholesterol Physical Exam - General General Appearance: Alert, Oriented x3, Cooperative, No acute distress Limitations: No limitations - Head Head exam: Atraumatic, Normal inspection - Eye Eye exam: Normal appearance, PERRL. negative: Conjunctival injection, Scleral icterus - ENT ENT exam: Normal exam, Mucous membranes moist Ear exam: Normal external inspection Nasal Exam: Normal inspection Mouth exam: Normal external inspection Teeth exam: Normal inspection Throat exam: Normal inspection - Neck Neck exam: Normal inspection, Full ROM. negative: Tenderness - Respiratory Respiratory exam: Normal lung sounds bilaterally. negative: Respiratory distress - Cardiovascular Cardiovascular Exam: Regular rate, Normal rhythm, Normal heart sounds - GI/Abdominal GI/Abdominal exam: Soft, Tenderness (She is tender in the epigastrium and RUQ. The abdomen is otherwise very soft and non tender. The RUQ and Epigastric pain are reproducible.). negative: Guarding, Rebound, Rigid - Rectal Rectal exam: Deferred - exam: Deferred - Extremities Extremities exam: Normal inspection, Full ROM, Normal capillary refill. negative: Tenderness - Back Back exam: Reports: Normal inspection. Denies: CVA tenderness (R), CVA tenderness (L) - Neurological Neurological exam: Alert, Oriented X3 - Psychiatric Psychiatric exam: Normal affect, Normal mood - Skin Skin exam: Dry, Intact, Normal color, Warm Course - Reevaluation(s) Reevaluation #1: EKG Sinus jovita, rate is 50, intervals QTc 456, [place] L, ST NS anterior changes similar and unchanged from the 11/17/17 EKG. 11/22/17 01:10 11/22/17 01:13 The EMR was reviewed from the prior visit on 11/[address] scans on the EMR were reviewed. She has had 3 [address] scans in the last 2 years. 11/22/17 01:29 The labs were negative including CMP,Lipase and troponin. 11/22/17 03:[address] scan from [facility] was reviewed. Distended gallbladder, Cholelithiasis. Correlate clinically and consider ultrasound for cholecystitis. 11/22/17 06:08 The case was discussed with Dr Ferrara. The plan will be for surgery this morning for cholelithiasis/cholecystitis. Medical Decision Making - Lab Data Result diagrams: 11/22/17 00:55 11/22/17 00:55 Disposition Disposition: Discharge Clinical Impression: Cholecystitis, Cholelithiasis Disposition: Home, Self-Care Condition: (1) Good Additional Instructions: Discharge to Outpatient Surgery Forms: Patient Portal Access Time of Disposition: 06:09 Quality - Quality Measures Quality Measures: N/A - Blood Pressure Screening Does Patient Have Any of the Following: No Blood Pressure Classification: Pre-Hypertensive BP Reading Systolic Measurement: 123 Diastolic Measurement: 81 Screening for High Blood Pressure: < Pre-Hypertensive BP, F/U Documented > [ G8950] Pre-Hypertensive Follow-up Interventions: Referral to alternative/primary care provider.
[2017-11-22 01:05] LABS: BASO % 0.3 % (0-6); EOS % 1.5 % (0-6); GRAN % 72.7 % (47-80); HEMATOCRIT 39.4 % (35.0-47.0); HEMOGLOBIN 13.4 gm/dl (11.6-16.0); LYMPH % 17.7 % (16-45); MEAN CELL VOLUME 86.4 fl (81-97); MEAN CORPUSCULAR HEMOGLOBIN 29.4 pg (27-33); MONO % 7.8 % (0-9); PLATELET COUNT 210 K/uL (130-400); RED BLOOD COUNT 4.56 M/uL (3.80-5.40); RED CELL DISTRIBUTION WIDTH 13.2 % (11.5-14.5); WHITE BLOOD COUNT W/O DIFF 9.1 K/uL (4.2-12.2)
[2017-11-22] MEDS ORDERED: MAGNESIUM HYDROXIDE/AL HYDROX 30 ML, LIDOCAINE VISC 2% 15ML 15 ML PO ONE ×2 (01:05)
[2017-11-22] MEDS ORDERED: KETOROLAC 30 MG/ML VIAL IVP ONE (01:05)
[2017-11-22 01:13] LABS: BLOOD UREA NITROGEN 12 mg/dL (6-20); CREATININE 0.7 mg/dL (0.5-0.9); EST GLOMERULAR FILTRATION RATE > 60 mL/min
[2017-11-22 01:14] LABS: BILIRUBIN,TOTAL < 0.20 mg/dL (0.2-1.0)
[2017-11-22 01:16] LABS: GLUCOSE,RANDOM 133 mg/dL (74-109)
[2017-11-22 01:19] LABS: ALB/GLOB RATIO 1.7 (1.1-1.8); ALBUMIN 4.4 g/dL (4.0-5.0); ALKALINE PHOSPHATASE 93 U/L (35-104); ALT/SGPT 15 U/L (<33); AST/SGOT 16 U/L (10.0-35.0); LIPASE 22 U/L (13-60)
[2017-11-22] MEDS ORDERED: 0.9 % SODIUM CHLORIDE 1000ML 1,000 ML IV ONE ×2 (03:23→06:13)
[2017-11-22] MEDS ORDERED: PIPERACILLIN SODIUM/TAZOBACTAM 4.5 GM in 0.9 % SODIUM CHLORIDE 100ML 100 ML IVPB ONE (03:32)
[2017-11-22] MEDS ORDERED: HYDROMORPHONE HCL 2 MG/ML VIAL IVP ONE ×2 (04:01→06:57)
--- NOTE | 2017-11-23 08:58 | CT SCAN REPORT ---
EXAM: EMERGENCY CT OF THE ABDOMEN AND PELVIS WITH CONTRAST HISTORY: UPPER ABDOMINAL PAIN, LOSS OF APPETITE. HYSTERECTOMY. PRIOR ADHESIONS RESECTED ALSO. TECHNIQUE: Axial CT scan of the abdomen and pelvis was obtained following both oral and IV contrast administration utilizing a dose of 100 ml of Omnipaque 300 as the IV contrast. Comparison: CT of the abdomen and pelvis dated 04/17/17. A preliminary report was provided by [facility]. FINDINGS: The gallbladder appears somewhat distended with a slightly thick walled appearance and slight blurring of the gallbladder outline. There is questionably cholelithiasis as well. The possibility of acute cholecystitis cannot be excluded. Follow-up gallbladder ultrasound may be useful for further evaluation if clinically warranted. Approximately 9.7 mm low attenuation mass anteriorly right kidney also present previously, with a CT density of 19 consistent with a cyst. There is probably a tiny nonobstructing calculus posteriorly in the left kidney as well. No definite hepatic, splenic, adrenal, or pancreatic mass identified. The uterus is not identified consistent with the surgical history. Minor diverticulosis sigmoid colon, but no diverticulitis evident. The appendix appears negative with no appendicitis evident. No free intraperitoneal air or free intraperitoneal fluid identified. Mild linear fibrosis or discoid atelectasis in the lingula again evident. There is probably some mild atelectasis posteriorly in the lung bases as well. Prominent hypertrophic spurring in the lower thoracic spine and degenerative disk disease in the lower lumbar spine with facet joint arthropathy in the lower lumbar region as well. IMPRESSION: 1. FINDINGS INVOLVING THE GALLBLADDER SUSPICIOUS FOR MILD CHANGES OF ACUTE CHOLECYSTITIS. FOLLOW-UP GALLBLADDER ULTRASOUND MAY BE USEFUL. 2. SMALL CYST UPPER POLE RIGHT KIDNEY AND SMALL NONOBSTRUCTING CALCULUS LEFT KIDNEY. 3. POSTOP HYSTERECTOMY. 4. MINOR DIVERTICULOSIS SIGMOID COLON, BUT NO DIVERTICULITIS EVIDENT. 5. PROMINENT SPURRING LOWER THORACIC SPINE AND PROMINENT FACET JOINT ARTHROPATHY LOWER LUMBAR SPINE. JOB NUMBER: [id number] [employer]
--- NOTE | 2017-11-24 12:40 | Operative Note ---
DATE OF SURGERY: 11/22/2017 Surgeon: Tato Ferrara DO PREOPERATIVE DIAGNOSIS: Acute cholecystitis. POSTOPERATIVE DIAGNOSIS: Acute cholecystitis. OPERATION: Laparoscopic cholecystectomy. Indication: The patient is a 52-year-old female who is having ongoing right subcostal postprandial pain. She was seen in the ER where a full workup was done. This did include imaging studies as well as laboratory values. This did show findings consistent with cholelithiasis, thickened gallbladder wall with some chronic cholecystitis. We did discuss cholecystectomy versus medical management. She desired surgical intervention. Risks include but are not limited to bleeding, infection, ductal injury, possible conversion to open, postoperative bile leak. PROCEDURE: Thereafter, consent was signed and questions answered. She was taken to the operating room and placed in a supine position. General anesthesia was administered per the department of anesthesia. The patient's abdomen was prepped and draped in the usual sterile fashion. The infraumbilical region was anesthetized with a total of 5 mL of 0.25% Sensorcaine with epinephrine. A 2 cm infraumbilical incision was made. This was carried down to the anterior rectus fascia. This was incised. Gildardo clamps were placed on the fascial edges and brought up into the wound. Stay sutures of 0 Vicryl were placed. Posterior rectus sheath was identified and incised. The peritoneal cavity was entered bluntly. At this time, a 10 mm blunt Peg port was placed. Adequate pneumoperitoneum was established. Under direct visualization, additional 5 mm epigastric and two 5 mm right subcostal ports were placed. The patient was then rotated into steep reverse Trendelenburg with rotation to left. The gallbladder was then identified. It was noted to be very thickened and inflamed. A Biermann needle was used to decompress the gallbladder of approximately 80 mL of purulent bile. Cephalad and lateral retraction were applied. The hepatocystic triangle was thoroughly dissected out. There was no aberrant anatomy, no posterior ductal structures. The cystic duct and cystic artery were clearly identified. Each one was doubly clipped and cut in a standard fashion. The gallbladder was essentially peeled off the liver bed with Yanick harmonic. This was placed in an EndoCatch bag and brought out through the umbilical port. Right upper quadrant was rechecked and found to be hemostatic. No bleeding. No bile leak. No bowel injury noted. The patient was leveled out. The pneumoperitoneum was released. All ports were removed. The fascia was closed with 0 Vicryl in a [id number] fashion. The skin at all ports was closed with 4-0 Vicryl. The patient was taken to the recovery room in satisfactory condition. FINDINGS AT THE TIME OF SURGERY: Acute on chronic cholecystitis. MTDD
== END 2017-11-22 15:40 | disposition home or self-care (01) ==
LOC: ER 00:50 → SUR 13:37
PROVIDERS: ATTEND Surgery
DX: K81.2 Acute cholecystitis with chronic cholecystitis (principal); F32.9 Major depressive disorder, single episode, unspecified
CPT/HCPCS: 47562; 00790; 83690; 85025; 80053; 84484; 74177; 93005; 93010; Q9967; J1885; J2405; J1170; J3490; 96361; 96365; 96375; 99285; J0330; J2543; J7030

== ENCOUNTER 2019-03-11 08:16 | Emergency (ER) | payer SELFPAY ==
[2019-03-11] MEDS ORDERED: LORAZEPAM 0.5 MG TABLET PO ONE (08:57)
--- NOTE | 2019-03-11 09:08 | Emergency Department Record ---
History of Present Illness - General Chief complaint: Allergic Reaction Stated complaint: REACTION TO MEDICATION Time Seen by Provider: 03/11/19 08:45 Source: Patient Mode of Arrival: Ambulatory Limitations: No limitations - History of Present Illness Initial Comments: pt thinks she is having a rxn to trazadone. pt states she has not taken her meds for 2 wks [ssri and benzo]. they are waiting at the pharmacy to be picked up. she feels very anxious MD Complaint: Other - Related Data Home Medications Medication Instructions Recorded Confirmed Last Taken Dicyclomine HCl 10 mg PO BID 03/11/19 03/11/19 Unknown Fluvoxamine Maleate 50 mg PO QHS 03/11/19 03/11/19 Unknown Allergies Allergy/AdvReac Type Severity Reaction Status Date / Time cephalexin monohydrate Allergy ITCHING Verified 03/11/19 08:26 [From Keflex] codeine Allergy ITCHING Verified 03/11/19 08:26 latex Allergy HIVES Verified 03/11/19 08:26 morphine AdvReac VOMITING Verified 03/11/19 08:27 Travel Screening - Travel/Exposure Within Last 30 Days Have you traveled within the last 30 days?: No Review of Systems Reviewed: No additional complaints except as noted below Constitutional: Reports: As per HPI. Denies: Chills, Fever, Malaise, Night sweats, Weakness, Weight change Eyes: Reports: As per HPI. Denies: Eye discharge, Eye pain, Photophobia, Vision change ENT: Reports: As per HPI. Denies: Congestion, Dental pain, Ear pain, Epistaxis, Hearing loss, Throat pain Respiratory: Reports: As per HPI. Denies: Cough, Dyspnea, Hemoptysis, Stridor, Wheezes Cardiovascular: Reports: As per HPI. Denies: Arrhythmia, Chest pain, Dyspnea on exertion, Edema, Murmurs, Orthopnea, Palpitations, Paroxysmal nocturnal dyspnea, Rheumatic Fever, Syncope Endocrine: Reports: As per HPI. Denies: Fatigue, Heat or cold intolerance, Polydipsia, Polyuria Gastrointestinal: Reports: As per HPI. Denies: Abdominal pain, Constipation, Diarrhea, Hematemesis, Hematochezia, Melena, Nausea, Vomiting Genitourinary: Reports: As per HPI. Denies: Abnormal menses, Discharge, Dyspareunia, Dysuria, Frequency, Hematuria, Incontinence, Retention, Urgency Musculoskeletal: Reports: As per HPI. Denies: Arthralgia, Back pain, Gout, Joint swelling, Myalgia, Neck pain Skin: Reports: As per HPI. Denies: Bruising, Change in color, Change in hair/nails, Lesions, Pruritus, Rash Neurological: Reports: As per HPI. Denies: Abnormal gait, Confusion, Headache, Numbness, Paresthesias, Seizure, Tingling, Tremors, Vertigo, Weakness Psychiatric: Reports: As per HPI. Denies: Anxiety, Auditory hallucinations, Depression, Homicidal thoughts, Suicidal thoughts, Visual hallucinations Hematological/Lymphatic: Reports: As per HPI. Denies: Anemia, Blood Clots, Easy bleeding, Easy bruising, Swollen glands Past Medical History - SOCIAL HISTORY Smoking Status: Current every day smoker Alcohol Use: None Drug Use: None - RESPIRATORY Hx Respiratory Disorders: No - CARDIOVASCULAR Hx Cardio Disorders: No - NEURO Hx Neuro Disorders: No - GI Hx GI Disorders: Yes Hx Abdominal Pain: Yes Hx Diverticulitis: Yes Hx Reflux: Yes Hx Nausea/Vomiting: Yes Hx Ulcer: Yes Comment:: chronic constipation and gi issues - Hx Genitourinary Disorders: No - ENDOCRINE Hx Endocrine Disorders: No - MUSCULOSKELETAL Hx Musculoskeletal Disorders: Yes - PSYCH Hx Psych Problems: Yes Hx Anxiety: Yes Hx Depression: Yes Hx Suicide Attempt: Yes (nothing since 2013) Comment:: OCPD - HEMATOLOGY/ONCOLOGY Hx Hematology/Oncology Disorders: No Family Medical History Any Significant Family History?: Yes Family Hx Comment (NOT TO BE USED IN PLACE OF ITEMS BELOW): High cholesterol Physical Exam - General General Appearance: Alert, Oriented x3, Cooperative, No acute distress - Head Head exam: Normal inspection - Eye Eye exam: Normal appearance, PERRL, EOMI Pupils: Normal accommodation - ENT ENT exam: Normal exam, Mucous membranes moist, Normal external ear exam, Normal orophraynx Ear exam: Normal external inspection. negative: External canal tenderness Nasal Exam: Normal inspection. negative: Discharge, Sinus tenderness Mouth exam: Normal external inspection, Tongue normal Teeth exam: Normal inspection. negative: Dental caries Throat exam: Normal inspection. negative: Tonsillar erythema, Tonsillar exudate - Neck Neck exam: Normal inspection, Full ROM. negative: Tenderness - Respiratory Respiratory exam: Normal lung sounds bilaterally. negative: Respiratory distress - Cardiovascular Cardiovascular Exam: Regular rate, Normal rhythm, Normal heart sounds - GI/Abdominal GI/Abdominal exam: Soft, Normal bowel sounds. negative: Tenderness - Rectal Rectal exam: Deferred - exam: Deferred - Extremities Extremities exam: Normal inspection, Full ROM, Normal capillary refill. negative: Tenderness - Back Back exam: Reports: Normal inspection, Full ROM. Denies: Muscle spasm, Rash noted, Tenderness - Neurological Neurological exam: Alert, CN II-XII intact, Normal gait, Oriented X3 - Psychiatric Psychiatric exam: Anxious, Normal mood - Skin Skin exam: Dry, Intact, Normal color, Warm Course Vital Signs 03/11/19 08:20 Temperature 98.6 F Pulse Rate 100 H Respiratory 20 Rate Blood Pressure 147/103 Pulse Ox 98 Disposition Disposition: Discharge Clinical Impression: Anxiety Disposition: Home, Self-Care Condition: (1) Good Instructions: Anxiety (ED), Social Anxiety Disorder (ED) Additional Instructions: follow up with family doctor. return sooner if worse. take ativan at home. pharmacy picking tech prescriptions today Quality - Quality Measures Quality Measures: N/A - Blood Pressure Screening Does Patient Have Any of the Following: No Blood Pressure Classification: Hypertensive Reading Systolic Measurement: 147 Diastolic Measurement: 103 Screening for High Blood Pressure: < First Hypertensive BP, F/U Documented > [G8950] First Hypertensive Follow-up Interventions: Follow-up with rescreen GT 1 day and LT 4 weeks.
== END 2019-03-11 09:21 | disposition home or self-care (01) ==
LOC: ER 08:16
DX: F41.9 Anxiety disorder, unspecified (principal); F17.210 Nicotine dependence, cigarettes, uncomplicated
CPT/HCPCS: 99283